=== PATIENT | male | born 1955 | race Two or more races ===

== ENCOUNTER 2016-08-17 15:05 | Inpatient (IN) | payer MEDICARE ==
[~2016-08-17] VITALS: Ht 177.8 cm; Wt 119.3 kg
[~2016-08-17 15:05] MED LIST: CARB200T PO; IBUP-1 PO; LEVO750T26 PO; LISI-167 PO; LISI40TA PO
[2016-08-17] MEDS ORDERED: ADENOSINE 6 MG/2 ML ONE (15:23)
[2016-08-17] MEDS ORDERED: SODIUM CHLORIDE FLUSH 10ML SYR IVF ONE (15:30)
[2016-08-17] MEDS ORDERED: SODIUM CHLORIDE 0.9% 1,000ML IVBOLUS ONE ×2 (15:30→17:30)
[2016-08-17] MEDS ORDERED: ADENOSINE 6 MG/2 ML IVPush ONE ×2 (15:30)
[2016-08-17] MEDS ORDERED: LEVE500T53 PO (15:39)
[2016-08-17 15:47] LABS: HEMOGLOBIN 14.4 g/dL (13.7-18.0)
[2016-08-17 15:56] LABS: BLOOD UREA NITROGEN 17 mg/dL (7-18)
[2016-08-17 16:01] LABS: ASPARTATE AMINO TRANSFERASE 31 U/L (15-37)
[2016-08-17 16:37] LABS: DIFF TOTAL CELLS COUNTED 100 CELL DIFF
[2016-08-17 16:39] LABS: VERIFY COUNTS? YES
[2016-08-17 18:12] LABS: IS PT STATUS REG ER OR PRE ER? YES
[2016-08-17] MEDS ORDERED: ONDANSETRON 2MG/ML, 2ML IVP PRN (19:30)
[2016-08-17] MEDS ORDERED: ONDANSETRON ODT 4 MG PO PRN (19:30)
[2016-08-17] MEDS ORDERED: HYDROcodone/APAP 5/325 TABLET PO PRN (19:30)
[2016-08-17] MEDS ORDERED: ACETAMINOPHEN 325 MG TABLET PO PRN (19:30)
[2016-08-17] MEDS ORDERED: LABETALOL 5MG/ML, 20ML IV PRN (19:30)
[2016-08-17 21:38] LABS: BLOOD UREA NITROGEN 16 mg/dL (7-18)
[2016-08-17 21:39] LABS: IS PT STATUS REG ER OR PRE ER? NO
[2016-08-17] MEDS ORDERED: ASPIRIN 81 MG TABLET CHEW PO ONE (22:30)
[2016-08-17] MEDS: LEVETIRACETAM 500 MG TABLET PO SCH (22:50)
[2016-08-17] MEDS: D5%-0.45NACL+KCL 20MEQ 1,000 ML IV SCH (22:50)
[2016-08-17] MEDS: HEPARIN 5,000 UNITS/ML, 1ML SQ SCH (22:50)
[2016-08-17 22:54] VITALS: BP 118/81
[2016-08-18 01:51] VITALS: BP 107/62
[2016-08-18 03:33] LABS: BLOOD UREA NITROGEN 15 mg/dL (7-18)
[2016-08-18 03:36] LABS: IS PT STATUS REG ER OR PRE ER? NO
[2016-08-18 07:32] VITALS: BP 116/87
[2016-08-18] MEDS ORDERED: SENNA/DOCUSATE TABLET PO SCH (09:00)
[2016-08-18] MEDS: LEVETIRACETAM 500 MG TABLET PO SCH (09:17)
[2016-08-18] MEDS: HEPARIN 5,000 UNITS/ML, 1ML SQ SCH (09:18)
[2016-08-18] MEDS: D5%-0.45NACL+KCL 20MEQ 1,000 ML IV SCH (11:09)
[2016-08-18] MEDS ORDERED: METO25TA9 PO (11:12)
[2016-08-18 11:15] LABS: IS PT STATUS REG ER OR PRE ER? NO
== END 2016-08-18 14:31 | disposition home or self-care (01) | DRG 683 ==
LOC: ED 15:51 → EDIP 18:00 → 5SO 19:31
PROVIDERS: ADMIT Internal Medicine; ATTEND Family Medicine
PROC: 5A2204Z Restoration of Cardiac Rhythm, Single (ICD-10-PCS; principal; 2016-08-17)
DX: N17.9 Acute kidney failure, unspecified (principal); I47.1 Supraventricular tachycardia; G40.909 Epilepsy, unspecified, not intractable, without status epilepticus; I10 Essential (primary) hypertension; E11.9 Type 2 diabetes mellitus without complications; Z96.652 Presence of left artificial knee joint; I25.10 Atherosclerotic heart disease of native coronary artery without angina pectoris; E66.9 Obesity, unspecified; Z68.37 Body mass index [BMI] 37.0-37.9, adult; Z87.891 Personal history of nicotine dependence
CPT/HCPCS: 36415; 71010; 80048; 80053; 83735; 84100; 84439; 84443; 84484; 85025; 85379; 85610; 85730; 93005; 93306; 96361; 96374; J0153; J1644; J3480; J7030

== ENCOUNTER 2016-08-25 17:59 | Inpatient (IN) | payer MEDICARE ==
[~2016-08-25] VITALS: Ht 177.8 cm; Wt 124.6 kg
[~2016-08-25 17:59] MED LIST changes: +LEVE500T53 PO; +METO25TA9 PO
[2016-08-25] MEDS ORDERED: ADENOSINE 6 MG/2 ML ONE ×2 (18:15→18:22)
[2016-08-25] MEDS ORDERED: ASPIRIN 81 MG TABLET CHEW PO ONE (18:30)
[2016-08-25] MEDS ORDERED: ADENOSINE 6 MG/2 ML IVPush ONE ×2 (18:30)
[2016-08-25] MEDS ORDERED: ASPIRIN 81 MG TABLET CHEW ONE (18:46)
[2016-08-25 19:02] LABS: BLOOD UREA NITROGEN 21 mg/dL (7-18)
[2016-08-25 19:08] LABS: IS PT STATUS REG ER OR PRE ER? YES
[2016-08-25 19:23] LABS: DIFF TOTAL CELLS COUNTED 100 CELL DIFF
[2016-08-25] MEDS ORDERED: SODIUM CHLORIDE 0.9% 1,000 ML IV ONE (19:34)
[2016-08-25 19:50] LABS: VERIFY COUNTS? YES
[2016-08-25] MEDS ORDERED: SODIUM CHLORIDE 0.9% 1,000ML IVBOLUS ONE (20:00)
[2016-08-25 21:00] VITALS: BP 113/70
[2016-08-25] MEDS ORDERED: ONDANSETRON 2MG/ML, 2ML IVP PRN (21:00)
[2016-08-25] MEDS ORDERED: LABETALOL 5MG/ML, 20ML IV PRN (21:00)
[2016-08-25] MEDS ORDERED: MORPHINE SULFATE 4 MG/ML, 1ML IVPush PRN (21:00)
[2016-08-25] MEDS ORDERED: ONDANSETRON ODT 4 MG PO PRN (21:00)
[2016-08-25] MEDS ORDERED: NITROGLYCERIN 0.4 MG/SPRAY SL PRN (21:00)
[2016-08-25] MEDS ORDERED: POLYETHYLENE GLYCOL 17 GM PACKET PO PRN (21:00)
[2016-08-25] MEDS ORDERED: HYDROcodone/APAP 5/325 TABLET PO PRN (21:00)
[2016-08-25] MEDS ORDERED: NITROGLYCERIN 0.4 MG BOTTLE (25 TABS) SL PRN ×2 (21:00)
[2016-08-25] MEDS ORDERED: ACETAMINOPHEN 325 MG TABLET PO PRN (21:00)
[2016-08-25] MEDS: D5%-0.45NACL+KCL 20MEQ 1,000 ML IV SCH (22:05)
[2016-08-25] MEDS: HEPARIN 5,000 UNITS/ML, 1ML SQ SCH (22:06)
[2016-08-25] MEDS: METOPROLOL SUCCINATE 25 MG TAB.ER.24H PO SCH (22:06)
[2016-08-25] MEDS: LEVETIRACETAM 500 MG TABLET PO SCH (22:06)
[2016-08-25] MEDS: INSULIN REGULAR 100 UNITS/ML, 3ML VIAL SQ-INSULIN SCH (22:30)
[2016-08-25] MEDS ORDERED: GLUCAGON 1 MG IM PRN (22:30)
[2016-08-25] MEDS ORDERED: DEXTROSE 50%, 50ML SYRINGE IVPush PRN (22:30)
[2016-08-25] MEDS ORDERED: DEXTROSE 4 GM TAB.CHEW PO PRN (22:30)
[2016-08-26 01:01] LABS: IS PT STATUS REG ER OR PRE ER? NO
[2016-08-26 02:23] VITALS: BP 100/63
[2016-08-26] MEDS: HEPARIN 5,000 UNITS/ML, 1ML SQ SCH ×3 (05:05→22:42)
[2016-08-26] MEDS: ASPIRIN 325 MG TABLET EC PO SCH (05:05)
[2016-08-26 06:45] VITALS: BP 125/86
[2016-08-26] MEDS: INSULIN REGULAR 100 UNITS/ML, 3ML VIAL SQ-INSULIN SCH ×4 (07:00→20:58)
[2016-08-26 07:05] LABS: BLOOD UREA NITROGEN 19 mg/dL (7-18)
[2016-08-26 07:15] LABS: IS PT STATUS REG ER OR PRE ER? NO
[2016-08-26 07:29] LABS: DIFF TOTAL CELLS COUNTED 100 CELL DIFF
[2016-08-26 07:36] LABS: VERIFY COUNTS? YES
[2016-08-26] MEDS: LEVETIRACETAM 500 MG TABLET PO SCH ×2 (07:37→20:57)
[2016-08-26] MEDS: D5%-0.45NACL+KCL 20MEQ 1,000 ML IV SCH ×2 (08:00→18:02)
[2016-08-26] MEDS: SODIUM CHLORIDE FLUSH 10ML SYR IVF SCH ×2 (09:00→20:58)
[2016-08-26] MEDS: SENNA/DOCUSATE TABLET PO SCH (09:00)
[2016-08-26] MEDS ORDERED: SODIUM CHLORIDE 0.9% 1,000 ML IV SCH (09:54)
[2016-08-26 12:53] VITALS: BP 154/95
[2016-08-26 20:10] VITALS: BP 130/77
[2016-08-26] MEDS: METOPROLOL SUCCINATE 25 MG TAB.ER.24H PO SCH (20:57)
[2016-08-27] VITALS (9 sets, daily range): BP systolic 95–134; BP diastolic 43–89
[2016-08-27] MEDS: ASPIRIN 325 MG TABLET EC PO SCH (04:45)
[2016-08-27] MEDS: D5%-0.45NACL+KCL 20MEQ 1,000 ML IV SCH ×2 (04:45→14:30)
[2016-08-27 05:34] LABS: BLOOD UREA NITROGEN 18 mg/dL (7-18)
[2016-08-27 05:59] LABS: DIFF TOTAL CELLS COUNTED 100 CELL DIFF
[2016-08-27 06:01] LABS: VERIFY COUNTS? YES
[2016-08-27] MEDS: INSULIN REGULAR 100 UNITS/ML, 3ML VIAL SQ-INSULIN SCH ×4 (07:00→19:50)
[2016-08-27] MEDS: SODIUM CHLORIDE FLUSH 10ML SYR IVF SCH ×2 (08:38→19:50)
[2016-08-27] MEDS: HEPARIN 5,000 UNITS/ML, 1ML SQ SCH ×2 (08:38→16:34)
[2016-08-27] MEDS: LEVETIRACETAM 500 MG TABLET PO SCH ×2 (08:39→19:49)
[2016-08-27] MEDS: TAMSULOSIN 0.4 MG CAP.ER.24H PO SCH (08:39)
[2016-08-27] MEDS: LISINOPRIL 5 MG TABLET PO SCH (08:39)
[2016-08-27] MEDS: SENNA/DOCUSATE TABLET PO SCH (08:40)
[2016-08-27] MEDS ORDERED: LEVETIRACETAM 500 MG TABLET PO SCH (09:00)
[2016-08-27] MEDS ORDERED: FENTANYL PF 250 MCG/5ML ONE (10:22)
[2016-08-27] MEDS ORDERED: MIDAZOLAM 1 MG/ML, 5ML ONE (10:22)
[2016-08-27] MEDS ORDERED: LIDOCAINE 2%, 20ML ONE (10:24)
[2016-08-27] MEDS ORDERED: PROPOFOL 10 MG/ML, 20ML ONE (10:25)
[2016-08-27] MEDS ORDERED: PROPOFOL 10 MG/ML, 50ML ONE (10:25)
[2016-08-27] MEDS ORDERED: ISOPROTERENOL 0.2MG/ML, 5ML ONE (10:45)
[2016-08-27] MEDS ORDERED: ZOLPIDEM 5MG TABLET PO PRN (12:00)
[2016-08-27] MEDS ORDERED: ACETAMINOPHEN 325 MG TABLET PO PRN (12:00)
[2016-08-27] MEDS: METOPROLOL SUCCINATE 25 MG TAB.ER.24H PO SCH (19:49)
[2016-08-27] MEDS ORDERED: ATORVASTATIN 40 MG TABLET PO SCH (21:00)
[2016-08-28 02:00] VITALS: BP 129/88
[2016-08-28] MEDS: HEPARIN 5,000 UNITS/ML, 1ML SQ SCH ×2 (02:40→11:00)
[2016-08-28] MEDS: INSULIN REGULAR 100 UNITS/ML, 3ML VIAL SQ-INSULIN SCH ×2 (07:00→11:00)
[2016-08-28] MEDS: SENNA/DOCUSATE TABLET PO SCH (07:12)
[2016-08-28] MEDS: LEVETIRACETAM 500 MG TABLET PO SCH (07:34)
[2016-08-28] MEDS: SODIUM CHLORIDE FLUSH 10ML SYR IVF SCH (07:34)
[2016-08-28] MEDS: LISINOPRIL 5 MG TABLET PO SCH (07:34)
[2016-08-28] MEDS: ASPIRIN 325 MG TABLET EC PO SCH (07:34)
[2016-08-28] MEDS: TAMSULOSIN 0.4 MG CAP.ER.24H PO SCH (07:35)
[2016-08-28 08:28] VITALS: BP 125/85
[2016-08-28] MEDS ORDERED: LEVE500T53 PO (11:17)
[2016-08-28] MEDS ORDERED: METF-649 PO (11:17)
[2016-08-28] MEDS ORDERED: TAMS-11 PO (11:17)
[2016-08-28] MEDS ORDERED: LISI5TAB7 PO (11:17)
[2016-08-28] MEDS ORDERED: ATOR40TA78 PO (11:17)
== END 2016-08-28 13:40 | disposition home or self-care (01) | DRG 274 ==
LOC: ED 19:58 → SUATTDRO 20:04 → EDIP 20:13 → 5SO 21:19 → DCLOUNGE 08-28 13:17
PROC: 02583ZZ Destruction of Conduction Mechanism, Percutaneous Approach (ICD-10-PCS; 2016-08-27)
PROC: 4A023FZ Measurement of Cardiac Rhythm, Percutaneous Approach (ICD-10-PCS; 2016-08-27)
PROC: 4A0234Z Measurement of Cardiac Electrical Activity, Percutaneous Approach (ICD-10-PCS; 2016-08-27)
PROC: 02K83ZZ Map Conduction Mechanism, Percutaneous Approach (ICD-10-PCS; 2016-08-27)
PROC: 5A2204Z Restoration of Cardiac Rhythm, Single (ICD-10-PCS; principal; 2016-08-27 08:00)
DX: I47.1 Supraventricular tachycardia (principal); N17.9 Acute kidney failure, unspecified; I24.8 Other forms of acute ischemic heart disease; G40.909 Epilepsy, unspecified, not intractable, without status epilepticus; I10 Essential (primary) hypertension; E11.9 Type 2 diabetes mellitus without complications; M10.9 Gout, unspecified; N18.2 Chronic kidney disease, stage 2 (mild); E11.22 Type 2 diabetes mellitus with diabetic chronic kidney disease; E78.5 Hyperlipidemia, unspecified; N40.0 Benign prostatic hyperplasia without lower urinary tract symptoms; Z87.891 Personal history of nicotine dependence; I51.7 Cardiomegaly; Z87.820 Personal history of traumatic brain injury
CPT/HCPCS: 36415; 71010; 80048; 82040; 82962; 83735; 84484; 85025; 85610; 86850; 86900; 92960; 93005; 93613; 93621; 93623; 93653; 96374; C1766; C1894; J0153; J1644; J2250; J2704; J3010; J3490; C1730; C2630; J3480; J7030

== ENCOUNTER 2017-03-10 00:28 | Emergency (ER) | payer MEDICARE ==
[~2017-03-10] VITALS: Ht 177.8 cm; Wt 120.2 kg
[~2017-03-10 00:28] MED LIST changes: +ATOR40TA78 PO; -IBUP-1 PO; +IBUP-11 PO; +LISI5TAB7 PO; +METF-649 PO; +METO-282 PO; -METO25TA9 PO; +TAMS-11 PO
[2017-03-10] MEDS ORDERED: morphine SULFATE 10 MG/ML, 1ML ONE (01:13)
[2017-03-10 01:23] LABS: HEMATOCRIT 44.3 % (39.2-51.8); HEMOGLOBIN 14.6 g/dL (13.7-18.0)
[2017-03-10] MEDS ORDERED: SODIUM CHLORIDE 0.9% 1,000ML IVBOLUS ONE (01:30)
[2017-03-10] MEDS ORDERED: MORPHINE SULFATE 4 MG/ML, 1ML IVPush ONE (01:30)
[2017-03-10 01:32] LABS: ASPARTATE AMINO TRANSFERASE 22 U/L (15-37); BLOOD UREA NITROGEN 15 mg/dL (7-18)
[2017-03-10] MEDS ORDERED: OMNIPAQUE 350 MG/ML, 100ML BOTTLE ONE (02:04)
[2017-03-10] MEDS ORDERED: CIPROFLOXACIN 500 MG TABLET PO ONE (02:30)
[2017-03-10] MEDS ORDERED: metroNIDAZOLE 500 MG TABLET PO ONE (02:30)
[2017-03-10] MEDS ORDERED: CIPROFLOXACIN 500 MG TABLET ONE (02:36)
[2017-03-10] MEDS ORDERED: metroNIDAZOLE 500 MG TABLET ONE (02:36)
[2017-03-10 02:52] VITALS: BP 142/78
== END 2017-03-10 02:55 | disposition home or self-care (01) ==
LOC: ED 01:09
DX: K57.32 Diverticulitis of large intestine without perforation or abscess without bleeding (principal); I10 Essential (primary) hypertension; G40.909 Epilepsy, unspecified, not intractable, without status epilepticus; M19.90 Unspecified osteoarthritis, unspecified site; E66.01 Morbid (severe) obesity due to excess calories; Z87.891 Personal history of nicotine dependence
CPT/HCPCS: 36415; 74177; 80053; 81003; 83690; 85025; 85610; 85730; 96361; 96374; 99285; J7030; Q9967

== ENCOUNTER 2018-02-22 21:57 | Emergency (ER) | payer MEDICARE ==
[~2018-02-22] VITALS: Ht 175.3 cm; Wt 123.2 kg
[2018-02-22 22:01] VITALS: BP 161/95
[2018-02-22 22:33] LABS: BASOPHILS # (AUTO) 0.03 x10^3/uL (0-0.1); BASOPHILS % (AUTO) 0 % (0-1); EOSINOPHILS # (AUTO) 0.42 x10^3/uL (0-0.4); EOSINOPHILS % (AUTO) 7 % (1-7); LYMPHOCYTES # (AUTO) 2.07 x10^3/uL (1-3.4); LYMPHOCYTES % (AUTO) 32 % (22-44); MD NO; MEAN CORPUSCULAR HEMOGLOBIN 27.3 pg (27.5-34.5); MEAN CORPUSCULAR HGB CONC 32.4 g/dL (33.2-36.2); MEAN CORPUSCULAR VOLUME 84.4 fL (81-97); MEAN PLATELET VOLUME 8.1 fL (7.4-10.4); MONOCYTES # (AUTO) 0.65 x10^3/uL (0.2-0.8); MONOCYTES % (AUTO) 10 % (2-9); NEUTROPHILS # (AUTO) 3.39 x10^3/uL (1.8-6.8); NEUTROPHILS % (AUTO) 52 % (42-75); PLATELET COUNT 197 x10^3/uL (130-400); RED CELL DISTRIBUTION WIDTH 13.7 % (9.4-14.8)
[2018-02-22 22:35] LABS: MICROSCOPIC NOT IND
[2018-02-22 22:40] LABS: CULTURE INDICATED? NO
[2018-02-22 22:45] LABS: ALBUMIN 3.3 g/dL (3.4-5.0); ANION GAP 7 mmol/L (5-15); CALCIUM 8.2 mg/dL (8.5-10.1); CHLORIDE 112 mmol/L (98-107); CREATININE 1.53 mg/dL (0.7-1.3)
== END 2018-02-22 23:36 ==
LOC: ED 23:35
DX: R35.0 Frequency of micturition (principal); I10 Essential (primary) hypertension; E11.9 Type 2 diabetes mellitus without complications; G40.909 Epilepsy, unspecified, not intractable, without status epilepticus; E66.01 Morbid (severe) obesity due to excess calories
CPT/HCPCS: 36415; 80048; 81003; 82040; 85025; 99284